=== PATIENT | female | born 1995 | race Caucasian/White ===

== ENCOUNTER 2018-06-23 06:28 | Day surgery (SDC) | payer BC ==
[2018-06-22 08:23] VITALS: BMI 30.5
[2018-06-23 07:13] LABS: BHCG - Serum Negative (NEGATIVE); Pregs Control Background? CLEAR/WHITE (CLR/WHITE); Pregs Control Bar Appear? YES (CONTROL BAR)
[2018-06-23] MEDS ORDERED: Midazolam HCl 2 mg/2 ml Vial ONE (07:27)
[2018-06-23] MEDS ORDERED: Meperidine HCl/PF 25 MG/ML VIAL ONE (08:10)
[2018-06-23] MEDS ORDERED: Fentanyl 100 MCG/2 ML VIAL ONE ×3 (08:10→09:27)
[2018-06-23] MEDS ORDERED: Famotidine/PF 20 mg/2ml Vial ONE (08:10)
[2018-06-23] MEDS ORDERED: Ferric Subsulfate 8 ML BOT ONE (08:28)
[2018-06-23] MEDS ORDERED: diphenhydrAMINE 50 MG/ML VIAL ONE (09:58)
[2018-06-23] MEDS ORDERED: Ondansetron HCl/PF 4 MG/2 ML Vial ONE (10:04)
[2018-06-23] MEDS ORDERED: Succinylcholine Chloride 20 MG/ML 10 ml SYRINGE FS ONE (10:04)
[2018-06-23] MEDS ORDERED: PROPOFOL 200 MG/20 ML VIAL ONE (10:04)
[2018-06-23] MEDS ORDERED: Lidocaine 1% PF 5 ML VIAL ONE (10:04)
[2018-06-23] MEDS ORDERED: Dexamethasone 20 MG/5 ML VIAL ONE (10:04)
[2018-06-23] MEDS ORDERED: Morphine 4 MG/ML VIAL ONE (10:08)
--- NOTE | 2018-06-23 22:27 | OP ---
DATE OF PROCEDURE: 06/23/2018 PREOPERATIVE DIAGNOSES: 1. Chronic adenotonsillitis. 2. Adenotonsillar hypertrophy. POSTOPERATIVE DIAGNOSES: 1. Chronic adenotonsillitis. 2. Adenotonsillar hypertrophy. PROCEDURE: Tonsillectomy and adenoidectomy. SURGEON: Vamshi Pedro M.D. ESTIMATED BLOOD LOSS: 0 mL. COMPLICATIONS: None. ANESTHESIA: GETA. PROCEDURE IN DETAIL: After consent was obtained, the patient was identified, brought to the operating room, and placed on the operating table in the supine position. General endotracheal anesthesia and intravenous access was obtained and we proceeded with positioning the patient for oropharyngeal surge ry. Oropharyngeal exposure was obtained with a Edi-Jude mouth gag after a head drape was placed an d secured with a towel clip. The Edi-Jude mouth gag was then suspended from the Armijo tray and camilla jorden elevation was achieved with a red rubber catheter. The right tonsil was addressed first. We used a curved Allis to grasp the tonsil and retract it medially as an anterior pillar incision was made. The retrotonsillar fascial plane was then established and blunt dissection was performed with the suc tion cautery. Blood vessels were anticipated, identified, and cauterized as they were encountered. Ul timately, dissection was carried to the posterior tonsillar pillar mucosa which was incised hemostati cleve, as well as the base of tongue connection. The tonsil was then passed off as a specimen and ble eding points within the tonsillar bed were cauterized under direct visualization. We subsequently tur ben our attention to the contralateral side, where using a similar technique, a near identical proced ure was performed. Again, the tonsil was grasped and retracted medially with a curved Allis. The retr otonsillar fascial plane was established and while the anterior pillar was retracted medially, the he mostatic blunt dissection of the tonsil with a suction cautery was performed with blood vessels antic ipated, identified, and cauterized as they were encountered. Again, dissection continued to the base of tongue and posterior tonsillar pillar mucosa which was incised in a hemostatic fashion. The tonsi llar beds were then carefully inspected and bleeding points were identified and cauterized with a suc tion cautery. After this portion of the procedure, hemostasis was completely obtained. Under direct m irror visualization, we visualized the adenoid pad. Under direct mirror visualization, we removed the bulk of the adenoid tissue with the adenoid curette. We then packed the nasopharynx for an appropria te period of time with Deep-Synephrine saturated tonsillar sponges. After a period of observation, we removed the pack. Under indirect mirror visualization, we obtained hemostasis and vaporization of res idual adenoid tissue with electrocautery. The patient's oral cavity was copiously irrigated with iced saline and subsequently suctioned. After completion of the procedure, the nasal cavity and oropharyn x were irrigated and suctioned as were the gastric contents. The patient was then awakened and transf erred to the recovery room where the patient remained in stable condition prior to discharge to [facility].
== END 2018-06-23 11:15 | disposition home or self-care (01) ==
LOC: SDC 06:28
PROVIDERS: ATTEND Otolaryngology Plastic Surgery within the Head & Neck
PROC: 0CTQXZZ Resection of Adenoids, External Approach (ICD-10-PCS; principal; 2018-06-23)
PROC: 0CTPXZZ Resection of Tonsils, External Approach (ICD-10-PCS; principal; 2018-06-23)
DX: J35.03 Chronic tonsillitis and adenoiditis (principal); B96.89 Other specified bacterial agents as the cause of diseases classified elsewhere; J34.3 Hypertrophy of nasal turbinates; J32.9 Chronic sinusitis, unspecified
CPT/HCPCS: 36415; 84703; 88304; 96374; J0131; J1100; J1200; J2001; J2175; J2250; J2270; J2405; J2704; J3010; S0028

== ENCOUNTER 2021-07-04 03:11 | Emergency (ER) | payer BC ==
[2021-07-04] MEDS ORDERED: Lorazepam 2 MG/ML VIAL ONE (03:40)
[2021-07-04] MEDS ORDERED: Ondansetron PF 4 MG/2 ML Vial ONE (03:40)
[2021-07-04 03:42] LABS: #Basophils 0.1 thou/uL (0.0-0.2); #Eosinphils 0.1 thou/uL (0.0-0.7); #Neutrophils 7.9 thou/uL (1.40-6.50); %Basophils 0.5 % (0.0-1.0); %Eosinophils 0.5 % (0.0-10.0); %Lymphocytes 39.6 % (21.0-51.0); %Monocytes 6.5 % (0.0-10.0); %Neutrophils 52.8 % (42.0-75.0); Hemoglobin 13.8 g/dL (12.0-16.0); Mean Corpuscular HGB CONC 34.2 g/dL (32.0-36.0); Mean Corpuscular Hemoglobin 32.9 pg (27.0-31.0); Mean Corpuscular Volume 96.2 fL (78.0-98.0); Mean Platelet Volume 8.3 fL (7.4-10.4); Platelet Count 316 thou/uL (130-400); RBC Distribution Width 11.2 % (11.5-14.5); Red Blood Cell (RBC) Count 4.19 mill/uL (4.20-5.40)
[2021-07-04 04:05] LABS: Acetaminophen Less than 6.0 mcg/mL (10.0-30.0); Alcohol Less than 10 mg/dL (Less than 10); CK (CPK) 42 U/L (29-168); Salicylate Less than 8.0 mg/dL (15.0-30.0)
[2021-07-04 04:06] LABS: ALT (SGPT) 11 U/L (8-55); AST (SGOT) 12 U/L (5-34); Albumin 4.5 g/dL (3.5-5.0); Alkaline Phosphatase 91 U/L (40-110); Anion Gap 18 mmol/L (10-20); BUN (Urea Nitrogen) 20 mg/dL (7.0-18.7); Bilirubin, Total 0.3 mg/dL (0.2-1.2); Calc. Creatinine Clearance 0 mL/min (70-130); Calcium 9.7 mg/dL (7.8-10.44); Carbon Dioxide 17 mmol/L (22-29); Chloride 103 mmol/L (98-107); Glucose 162 mg/dL (70-105); Potassium 3.8 mmol/L (3.5-5.1); Protein, Total 7.5 g/dL (6.0-8.3); Sodium 134 mmol/L (136-145)
== END 2021-07-04 06:50 | disposition home or self-care (01) ==
LOC: ERS 03:11
DX: E86.0 Dehydration (principal); D72.829 Elevated white blood cell count, unspecified; T45.0X5A Adverse effect of antiallergic and antiemetic drugs, initial encounter; F17.210 Nicotine dependence, cigarettes, uncomplicated
CPT/HCPCS: 71045; 80053; 80307; 82550; 85025; 96374; 96375; J2060; J2405

== ENCOUNTER 2024-11-03 13:45 | Emergency (ER) | payer SELFPAY | END 2024-11-03 15:32 | disposition home or self-care (01) | LOC: ERS 13:45 | DX: J11.1 Influenza due to unidentified influenza virus with other respiratory manifestations (principal) | CPT/HCPCS: 87428; 99283 ==